=== PATIENT | female | born 1940 | race Caucasian/White ===

== ENCOUNTER 2021-09-17 23:00 | Emergency (ER) | payer OTHER ==
[2021-09-18 01:00] LABS: HEMOGLOBIN 12.4 gm/dl (12.3-15.3); RED BLOOD COUNT 4.04 M/UL (4.00-5.10); WHITE BLOOD COUNT 6.2 K/UL (4.5-11.0)
[2021-09-18 01:21] LABS: BUN/CREATININE RATIO 32 (0-10)
== END 2021-09-18 20:00 | disposition short-term general hospital (02) ==
LOC: ER1 23:00
PROVIDERS: Family Medicine
DX: F03.91 Unspecified dementia, unspecified severity, with behavioral disturbance (principal); I10 Essential (primary) hypertension; Z79.899 Other long term (current) drug therapy; Z20.822 Contact with and (suspected) exposure to COVID-19
CPT/HCPCS: 70450; 71045; 80053; 80307; 81001; 82550; 82553; 83605; 83735; 84484; 85025; 85379; 93005; 93970; 96372; 96374; 99285; J2060; J3486; Q9967; U0002